=== PATIENT | female | born 1960 | race American Indian/Alaskan Native ===

== ENCOUNTER 2019-02-20 07:23 | Day surgery (SDC) | payer OTHER, MEDICARE ==
[~2019-02-20 07:23] MED LIST: NACL 0.9% 1000 ML 1,000 ML IV SCH
[2019-02-20] MEDS ORDERED: LIDOCAINE VISCOUS 2% ONE (07:45)
[2019-02-20] MEDS ORDERED: XYLOCAINE 2% INFILTRATI ONE (07:45)
[2019-02-20] MEDS ORDERED: HURRICAINE ONE 20% TOPICAL SPRAY MM (07:46)
[2019-02-20] MEDS ORDERED: DIPRIVAN 10 MG/ML IV ONE ×2 (09:05→09:06)
[2019-02-20] MEDS ORDERED: VERSED ONE (09:05)
--- NOTE | 2019-02-20 09:08 | Anesthesia Consultation ---
Anesthesia Consult and Med Hx Date of service: 02/20/19 - Airway Anesthetic Teeth Evaluation: Good ROM Head & Neck: Adequate Mental/Hyoid Distance: Adequate Mallampati Class: Class II Intubation Access Assessment: Probably Good - Pulmonary Exam CTA: No - Cardiac Exam Cardiac Exam: RRR - Pre-Operative Health Status ASA Pre-Surgery Classification: ASA3 Proposed Anesthetic Plan: MAC - Pulmonary Hx Asthma: Yes SOB: Yes COPD: Yes Home Oxygen Therapy: Yes Hx Pneumonia: No - Cardiovascular System Hx Pacemaker: No Hx Internal Defibrillator: No - Endocrine Hx End Stage Renal Disease: No - Other Systems Hx Cancer: Yes (LUNG CA)
--- NOTE | 2019-02-20 09:16 | Anesthesia Day of Surgery ---
Anesthesia Day of Surgery - Day of Surgery Patient Examined: Yes Patient H&P Reviewed: Yes Patient is NPO: Yes Beta Blockers: No
[2019-02-20 10:52] VITALS: BP 131/88
== END 2019-02-20 10:52 | disposition home or self-care (01) ==
LOC: GIO 07:23
PROVIDERS: ATTEND Specialist
DX: R05 Cough (principal)
CPT/HCPCS: J2250; J2704; J7030